=== PATIENT | female | born 1970 | race Caucasian/White ===

== ENCOUNTER → 2016-04-26 | Outpatient (REF) | payer OTHER ==
[~2016-04-26] MED LIST: /DULO30CA; BUSP10TA PO; CYMB60CA3 PO; HYDROCORTISONE0.5 %; LEVO25TA5 PO; PAXI20TA; [UNRECOGNIZED DRUG - OTHER]
[2016-04-26 12:10] LABS: THYROXINE (T4) 8.5 UG/DL (4.5-12.0)
== END | disposition home or self-care (01) ==
LOC: M SFHCCLAY 08:25
PROVIDERS: ATTEND Family Medicine
DX: E03.9 Hypothyroidism, unspecified (principal)

== ENCOUNTER → 2016-05-14 | Outpatient (REF) | payer OTHER ==
[2016-05-14 17:24] LABS: FOLLICLE STIMULATING HORMONE 6.3 mIU/mL; LUTEINIZING HORMONE 20.6 mIU/mL; PROLACTIN 29.5 NG/ML
== END ==
LOC: M SFHCCLAY 11:15
PROVIDERS: ATTEND Family Medicine
DX: N94.3 Premenstrual tension syndrome (principal)

== ENCOUNTER → 2016-06-17 | Outpatient (REF) | payer OTHER | LOC: M LAB REF 18:14 | PROVIDERS: ATTEND Physician Assistant Medical | DX: R30.0 Dysuria (principal) ==

== ENCOUNTER → 2016-10-19 | Outpatient (REF) | payer BC, OTHER ==
[2016-10-19 19:30] LABS: THYROXINE (T4) 8.9 UG/DL (4.5-12.0)
== END ==
LOC: M LABDRWAD 14:42
PROVIDERS: ATTEND Family Medicine
DX: E03.9 Hypothyroidism, unspecified (principal)

== ENCOUNTER → 2017-01-23 | Outpatient (REF) | payer BC, OTHER | LOC: EEVIPCON 20:52 → M LAB REF 20:52 | PROVIDERS: ATTEND Physician Assistant | DX: R30.0 Dysuria (principal) ==

== ENCOUNTER → 2017-03-26 | Outpatient (REF) | payer BC ==
[2017-03-26 18:16] LABS: CHLAMYDIA DNA AMPLIFICATION NEGATIVE (NEGATIVE); GC DNA AMPLIFICATION NEGATIVE (NEGATIVE)
== END ==
LOC: M LAB REF 16:16
DX: R30.0 Dysuria (principal)
CPT/HCPCS: 87086

== ENCOUNTER → 2017-04-05 | Outpatient (REF) | payer BC ==
[2017-04-05 20:11] LABS: THYROXINE (T4) 8.1 UG/DL (4.5-12.0)
== END ==
LOC: M LAB REF 09:06
DX: E03.9 Hypothyroidism, unspecified (principal)
CPT/HCPCS: 84443

== ENCOUNTER → 2017-04-11 | Outpatient (REF) | payer BC | LOC: M SFHCCLAY 16:17 | DX: R39.15 Urgency of urination (principal) | CPT/HCPCS: 87086 ==

== ENCOUNTER → 2017-04-25 | Outpatient (REF) | payer BC ==
[2017-04-26 11:34] LABS: BASO # 0.1 10^3/uL (0.0-0.2); BASO % 1.6 % (0.0-1.0); EOS # 0.1 10^3/uL (0.0-0.50); EOS % 1.2 % (0.0-3.0); HEMATOCRIT 38.4 % (36.0-47.0); HEMOGLOBIN 12.9 g/dl (12.0-16.0); IMMATURE GRANULOCYTE % 0.2 % (0-0); LYMPH # 1.7 10^3/uL (1.5-4.5); LYMPH % 30.4 % (24.0-44.0); MEAN CORPUSCULAR HEMOGLOBIN 29.1 pg (27.0-33.0); MEAN CORPUSCULAR HGB CONC 33.6 g/dl (32.0-36.5); MEAN CORPUSCULAR VOLUME 86.7 fl (80.0-96.0); MONO # 0.7 10^3/uL (0.0-0.8); MONO % 11.4 % (0.0-5.0); NEUTROPHILS # 3.2 10^3/uL (1.8-7.7); NEUTROPHILS % 55.2 % (36.0-66.0); PLATELET COUNT, AUTOMATED 322 10^3/uL (150-450); RED BLOOD COUNT 4.43 10^6/uL (4.00-5.40); WHITE BLOOD COUNT 5.7 10^3/uL (4.0-10.0)
[2017-04-26 11:49] LABS: IRON (FE) 188 UG/DL (50-170)
[2017-04-26 12:46] LABS: FOLATE 23.1 NG/ML (>5.4)
== END ==
LOC: M SFHCCLAY 14:13
DX: Z13.21 Encounter for screening for nutritional disorder (principal); R53.82 Chronic fatigue, unspecified; L65.9 Nonscarring hair loss, unspecified
CPT/HCPCS: 82746

== ENCOUNTER → 2017-05-07 | Outpatient (REF) | payer BC ==
[2017-05-07 13:28] LABS: APPEARANCE, URINE HAZY (CLEAR); BACTERIA, URINE AUTO 1+ (NEGATIVE); BILIRUBIN, URINE AUTO NEGATIVE (NEGATIVE); BLOOD, URINE BLOOD NEGATIVE (NEGATIVE); COLOR, URINE YELLOW (YELLOW); GLUCOSE, URINE (UA) AUTO NEGATIVE (NEGATIVE); KETONE, URINE AUTO NEGATIVE (NEGATIVE); LEUKOCYTE ESTERASE, URINE AUTO NEGATIVE (NEGATIVE); MUCUS, URINE SMALL (NEGATIVE); NITRITE, URINE AUTO NEGATIVE (NEGATIVE); PROTEIN, URINE AUTO NEGATIVE (NEGATIVE); RBC, URINE AUTO 2 /HPF (0-3); SPECIFIC GRAVITY URINE AUTO 1.024 (1.002-1.035); SQUAMOUS EPITHELIAL CELL UR AU 5 /HPF (0-6); UROBILINOGEN, URINE AUTO 0.2 mg/dL (0.0-2.0); WBC, URINE AUTO 0 /HPF (0-3)
== END ==
LOC: M SMT 13:11
DX: R39.15 Urgency of urination (principal); R30.0 Dysuria; R31.9 Hematuria, unspecified
CPT/HCPCS: 81001

== ENCOUNTER → 2017-07-11 | Outpatient (REF) | payer BC ==
[2017-07-11 18:18] LABS: APPEARANCE, URINE CLEAR (CLEAR); BACTERIA, URINE AUTO NEGATIVE (NEGATIVE); BILIRUBIN, URINE AUTO NEGATIVE (NEGATIVE); BLOOD, URINE BLOOD NEGATIVE (NEGATIVE); COLOR, URINE YELLOW (YELLOW); GLUCOSE, URINE (UA) AUTO NEGATIVE (NEGATIVE); KETONE, URINE AUTO NEGATIVE (NEGATIVE); LEUKOCYTE ESTERASE, URINE AUTO NEGATIVE (NEGATIVE); MUCUS, URINE SMALL (NEGATIVE); NITRITE, URINE AUTO NEGATIVE (NEGATIVE); PROTEIN, URINE AUTO NEGATIVE (NEGATIVE); RBC, URINE AUTO 1 /HPF (0-3); SPECIFIC GRAVITY URINE AUTO 1.014 (1.002-1.035); SQUAMOUS EPITHELIAL CELL UR AU 0 /HPF (0-6); UROBILINOGEN, URINE AUTO 0.2 mg/dL (0.0-2.0); WBC, URINE AUTO 1 /HPF (0-3)
== END ==
LOC: M SMT 17:22
DX: R31.9 Hematuria, unspecified (principal)
CPT/HCPCS: 81001

== ENCOUNTER → 2017-10-26 | Outpatient (REF) | payer BC | LOC: M LAB REF 10:12 | DX: R30.0 Dysuria (principal) | CPT/HCPCS: 87086 ==

== ENCOUNTER → 2017-11-15 | Outpatient (REF) | payer BC ==
[2017-11-15 17:17] LABS: TOTAL T3 96.1 NG/DL (60.0-181.0)
[2017-11-15 17:20] LABS: THYROXINE (T4) 8.2 UG/DL (4.5-12.0)
== END ==
LOC: M SFHCADAM 15:28
DX: E03.9 Hypothyroidism, unspecified (principal)
CPT/HCPCS: 84443

== ENCOUNTER → 2018-02-05 | Outpatient (REF) | payer BC | LOC: M LAB REF 19:30 | DX: N39.0 Urinary tract infection, site not specified (principal) | CPT/HCPCS: 87186 ==

== ENCOUNTER → 2018-05-09 | Outpatient (REF) | payer BC | LOC: M LABDRWAD 19:12 | PROVIDERS: ATTEND Family Medicine | DX: E03.9 Hypothyroidism, unspecified (principal) ==

== ENCOUNTER → 2018-07-25 | Outpatient (REF) | payer BC ==
[~2018-07-25] MED LIST changes: -/DULO30CA; +CYMB1CAP5
== END ==
LOC: M SFHCCLAY 11:41
PROVIDERS: ATTEND Family Medicine
DX: E03.9 Hypothyroidism, unspecified (principal)

== ENCOUNTER → 2018-12-09 | Outpatient (REF) | payer BC ==
[2018-12-09 17:25] LABS: ALBUMIN 3.7 GM/DL (3.2-5.2); ALT/SGPT 18 U/L (12-78); BILIRUBIN,TOTAL 0.8 MG/DL (0.2-1.0); BLOOD UREA NITROGEN 11 MG/DL (7-18); CARBON DIOXIDE LEVEL 26 MEQ/L (21-32); CHLORIDE LEVEL 106 MEQ/L (98-107); CHOLESTEROL LEVEL 221 MG/DL (<200); CREATININE FOR GFR 0.86 MG/DL (0.55-1.30); GLOMERULAR FILTRATION RATE > 60.0 (>58); GLUCOSE, FASTING 86 MG/DL (70-100); HDL CHOLESTEROL 65 MG/DL (>40); LDL CHOLESTEROL 133 MG/DL (<100); NON-HDL-C 156 MG/DL; POTASSIUM SERUM 4.1 MEQ/L (3.5-5.1); SODIUM LEVEL 139 MEQ/L (136-145); THYROXINE (T4) 7.4 UG/DL (4.5-12.0); TOTAL PROTEIN 7.2 GM/DL (6.4-8.2); TOTAL T3 81.8 NG/DL (60.0-181.0); TRIGLYCERIDES LEVEL 113 MG/DL (<150)
== END ==
LOC: M SFHCCLAY 10:33
PROVIDERS: ATTEND Family Medicine
DX: Z13.220 Encounter for screening for lipoid disorders (principal); E03.9 Hypothyroidism, unspecified

== ENCOUNTER → 2019-06-26 | Outpatient (REF) | payer BC | LOC: M SFHCADAM 15:39 | PROVIDERS: ATTEND Family Medicine | DX: E03.9 Hypothyroidism, unspecified (principal) ==

== ENCOUNTER → 2019-11-03 | Outpatient (REF) | payer BC | LOC: M SFHCCLAY 15:19 | PROVIDERS: ATTEND Family Medicine | DX: E03.9 Hypothyroidism, unspecified (principal) ==

== ENCOUNTER → 2019-12-14 | Outpatient (REF) | payer BC ==
[2019-12-14 17:32] LABS: ALBUMIN 3.7 GM/DL (3.2-5.2); ALT/SGPT 18 U/L (12-78); BILIRUBIN,TOTAL 0.7 MG/DL (0.2-1.0); BLOOD UREA NITROGEN 13 MG/DL (7-18); CARBON DIOXIDE LEVEL 29 MEQ/L (21-32); CHLORIDE LEVEL 107 MEQ/L (98-107); CHOLESTEROL LEVEL 236 MG/DL (<200); CHOLESTEROL RISK RATIO 3.806 (<5); GLOMERULAR FILTRATION RATE > 60.0 (>58); GLUCOSE, FASTING 87 MG/DL (70-100); HDL CHOLESTEROL 62 MG/DL (>40); LDL CHOLESTEROL 145 MG/DL (<100); NON-HDL-C 174 MG/DL; POTASSIUM SERUM 4.5 MEQ/L (3.5-5.1); SODIUM LEVEL 140 MEQ/L (136-145); TOTAL PROTEIN 7.1 GM/DL (6.4-8.2); TRIGLYCERIDES LEVEL 146 MG/DL (<150)
== END ==
LOC: M SFHCCLAY 16:18
PROVIDERS: ATTEND Family Medicine
DX: E03.9 Hypothyroidism, unspecified (principal); E78.2 Mixed hyperlipidemia

== ENCOUNTER → 2020-01-22 | Outpatient (REF) | payer BC ==
[2020-01-22 17:41] LABS: FREE T4 1.01 NG/DL (0.76-1.46); THYROID STIMULATING HORMONE 3.24 uIU/ML (0.358-3.740)
== END ==
LOC: M SFHCCLAY 09:43
PROVIDERS: ATTEND Family Medicine
DX: E03.9 Hypothyroidism, unspecified (principal)

== ENCOUNTER → 2020-02-16 | Outpatient (REF) | payer BC ==
[2020-02-16 16:35] LABS: BASO # 0.1 10^3/uL (0.0-0.2); BASO % 1.1 % (0.0-1.0); EOS # 0.1 10^3/uL (0.0-0.5); EOS % 1.2 % (0.0-3.0); HEMATOCRIT 41.6 % (36.0-47.0); HEMOGLOBIN 13.6 g/dl (12.0-15.5); LYMPH # 2.4 10^3/uL (1.5-5.0); LYMPH % 29.2 % (24.0-44.0); MEAN CORPUSCULAR HEMOGLOBIN 29.4 pg (27.0-33.0); MEAN CORPUSCULAR HGB CONC 32.7 g/dl (32.0-36.5); MEAN CORPUSCULAR VOLUME 89.8 fl (80.0-96.0); MONO # 0.9 10^3/uL (0.0-0.8); MONO % 10.4 % (0.0-5.0); NEUTROPHILS # 4.8 10^3/uL (1.5-8.5); NEUTROPHILS % 57.9 % (36.0-66.0); PLATELET COUNT, AUTOMATED 352 10^3/uL (150-450); RED BLOOD COUNT 4.63 10^6/uL (4.00-5.40); WHITE BLOOD COUNT 8.3 10^3/uL (4.0-10.0)
== END ==
LOC: M SFHCCLAY 13:59
PROVIDERS: ATTEND Family Medicine
DX: E03.9 Hypothyroidism, unspecified (principal); R53.82 Chronic fatigue, unspecified

== ENCOUNTER → 2020-03-10 | Outpatient (REF) | payer BC ==
[2020-03-11 12:19] LABS: FREE T4 1.39 NG/DL (0.76-1.46); THYROID STIMULATING HORMONE 0.11 uIU/ML (0.358-3.740)
== END ==
LOC: M SFHCCLAY 15:14
PROVIDERS: ATTEND Family Medicine
DX: E03.9 Hypothyroidism, unspecified (principal)

== ENCOUNTER → 2020-06-01 | Outpatient (CLI) | payer BC ==
[2020-06-01 17:55] LABS: FREE T4 0.99 NG/DL (0.76-1.46); THYROID STIMULATING HORMONE 2.09 uIU/ML (0.358-3.740)
== END ==
LOC: M LAB 16:55
PROVIDERS: ATTEND Family Medicine
DX: E03.9 Hypothyroidism, unspecified (principal)

== ENCOUNTER → 2020-07-14 | Outpatient (CLI) | payer BC ==
[2020-07-14 18:09] LABS: FREE T4 1.02 NG/DL (0.76-1.46); THYROID STIMULATING HORMONE 0.372 uIU/ML (0.358-3.740)
== END ==
LOC: M LAB 17:24
PROVIDERS: ATTEND Family Medicine
DX: E03.9 Hypothyroidism, unspecified (principal)

== ENCOUNTER 2020-08-31 11:53 | Emergency (ER) | payer BC ==
[~2020-08-31] VITALS: Ht 162.6 cm; Wt 68.2 kg
[2020-08-31 12:40] LABS: HEMATOCRIT 41.5 % (36.0-47.0); HEMOGLOBIN 13.7 g/dl (12.0-15.5); MEAN CORPUSCULAR HEMOGLOBIN 29.2 pg (27.0-33.0); MEAN CORPUSCULAR VOLUME 88.5 fl (80.0-96.0); PLATELET COUNT, AUTOMATED 316 10^3/uL (150-450); RED BLOOD COUNT 4.69 10^6/uL (4.00-5.40)
[2020-08-31 13:06] LABS: AMPHETAMINES LEVEL URINE NEGATIVE (NEGATIVE); BARBITURATES URINE NEGATIVE (NEGATIVE); BENZODIAZEPINES URINE NEGATIVE (NEGATIVE); CANNABINOIDS URINE NEGATIVE (NEGATIVE); COCAINE METABOLITE URINE NEGATIVE (NEGATIVE); METHADONE URINE NEGATIVE (NEGATIVE); OPIATES URINE NEGATIVE (NEGATIVE); PHENCYCLIDINE URINE NEGATIVE (NEGATIVE)
[2020-08-31 13:15] LABS: ACETAMINOPHEN LEVEL < 2.0 UG/ML (10.0-30.0); ALT/SGPT 19 U/L (12-78); BILIRUBIN,DIRECT 0.2 MG/DL (0.0-0.2); BILIRUBIN,TOTAL 0.7 MG/DL (0.2-1.0); BLOOD UREA NITROGEN 9 MG/DL (7-18); CALCIUM LEVEL 9.5 MG/DL (8.5-10.1); CARBON DIOXIDE LEVEL 29 MEQ/L (21-32); CHLORIDE LEVEL 105 MEQ/L (98-107); CREATININE FOR GFR 0.84 MG/DL (0.55-1.30); ETHYL ALCOHOL (ETHANOL) 0.005 % (0.000-0.010); GLOMERULAR FILTRATION RATE > 60.0 (>51); GLUCOSE, FASTING 87 MG/DL (70-100); POTASSIUM SERUM 4.5 MEQ/L (3.5-5.1); SALICYLATE LEVEL < 1.7 MG/DL (5.0-30.0); SODIUM LEVEL 139 MEQ/L (136-145); TOTAL PROTEIN 7.8 GM/DL (6.4-8.2)
[2020-08-31] MEDS ORDERED: LORazepam 1 MG TAB PO ONE (14:10)
[2020-08-31 14:26] LABS: HCG, SERUM QUALITATIVE NEGATIVE (NEGATIVE)
[2020-08-31 16:54] LABS: RSV AMPLIFICATION NEGATIVE (NEGATIVE)
[2020-08-31] MEDS ORDERED: MAGN250T22 PO (20:53)
[2020-08-31] MEDS ORDERED: IBUP80TA PO (20:53)
[2020-08-31] MEDS ORDERED: ANTIBIOTIC PO (20:53)
[2020-08-31] MEDS ORDERED: VITMTA PO (20:53)
[2020-08-31] MEDS ORDERED: EUTH75TA PO (20:53)
[2020-09-01 03:05] VITALS: BP 134/79
--- NOTE | 2020-09-01 08:41 | ECGEPIP ---
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
== END 2020-09-01 03:15 ==
LOC: M ED 11:53
DX: F32.9 Major depressive disorder, single episode, unspecified (principal); R45.850 Homicidal ideations; R45.851 Suicidal ideations; Z79.899 Other long term (current) drug therapy; Z88.8 Allergy status to other drugs, medicaments and biological substances; Z88.5 Allergy status to narcotic agent; Z88.1 Allergy status to other antibiotic agents; Z88.2 Allergy status to sulfonamides

== ENCOUNTER → 2020-09-19 | Outpatient (REF) | payer BC ==
[~2020-09-19] MED LIST changes: +ANTIBIOTIC PO; +EUTH75TA PO; +IBUP80TA PO; +MAGN250T22 PO; +VITMTA PO
[2020-09-20 12:10] LABS: ALBUMIN 4.2 GM/DL (3.2-5.2); ALT/SGPT 15 U/L (12-78); BILIRUBIN,TOTAL 0.8 MG/DL (0.2-1.0); BLOOD UREA NITROGEN 11 MG/DL (7-18); CALCIUM LEVEL 9.5 MG/DL (8.5-10.1); CARBON DIOXIDE LEVEL 24 MEQ/L (21-32); CHLORIDE LEVEL 107 MEQ/L (98-107); CHOLESTEROL LEVEL 249 MG/DL (<200); CREATININE FOR GFR 0.86 MG/DL (0.55-1.30); FREE T4 1.23 NG/DL (0.76-1.46); GLOMERULAR FILTRATION RATE > 60.0 (>51); GLUCOSE, FASTING 81 MG/DL (70-100); HDL CHOLESTEROL 60 MG/DL (>40); LDL CHOLESTEROL 165 MG/DL (<100); NON-HDL-C 189 MG/DL; POTASSIUM SERUM 4.3 MEQ/L (3.5-5.1); SODIUM LEVEL 139 MEQ/L (136-145); THYROID STIMULATING HORMONE 0.624 uIU/ML (0.358-3.740); TOTAL PROTEIN 7.8 GM/DL (6.4-8.2); TRIGLYCERIDES LEVEL 118 MG/DL (<150)
== END ==
LOC: M SFHCCLAY 15:42
PROVIDERS: ATTEND Family Medicine
DX: E78.2 Mixed hyperlipidemia (principal); E03.9 Hypothyroidism, unspecified

== ENCOUNTER → 2020-11-29 | Outpatient (CLI) | payer OTHER ==
[2020-11-29 16:50] LABS: FREE T4 1.13 NG/DL (0.76-1.46); THYROID STIMULATING HORMONE 1.44 uIU/ML (0.358-3.740)
== END ==
LOC: M WUC 13:20
PROVIDERS: ATTEND Family Medicine
DX: E03.9 Hypothyroidism, unspecified (principal)

== ENCOUNTER 2021-04-19 18:00 | Emergency (ER) | payer OTHER ==
[~2021-04-19] VITALS: Ht 162.6 cm; Wt 63.6 kg
[~2021-04-19 18:00] MED LIST changes: -CYMB60CA3 PO; +CYMB60CA4 PO
[2021-04-19 18:01] VITALS: BP 156/65
== END 2021-04-20 00:42 | disposition left against medical advice (07) ==
LOC: M ED 18:00
DX: Z53.21 Procedure and treatment not carried out due to patient leaving prior to being seen by health care provider (principal)

== ENCOUNTER → 2021-05-08 | Outpatient (REF) | payer OTHER ==
[2021-05-09 12:39] LABS: ALBUMIN 3.9 GM/DL (3.2-5.2); ALT/SGPT 22 U/L (12-78); BILIRUBIN,TOTAL 0.4 MG/DL (0.2-1.0); BLOOD UREA NITROGEN 16 MG/DL (7-18); CALCIUM LEVEL 9.5 MG/DL (8.5-10.1); CARBON DIOXIDE LEVEL 24 MEQ/L (21-32); CHLORIDE LEVEL 106 MEQ/L (98-107); CHOLESTEROL LEVEL 240 MG/DL (<200); CHOLESTEROL RISK RATIO 3.582 (<5); CREATININE FOR GFR 0.84 MG/DL (0.55-1.30); FREE T4 1.16 NG/DL (0.76-1.46); GLOMERULAR FILTRATION RATE > 60.0 (>51); GLUCOSE, FASTING 83 MG/DL (70-100); HDL CHOLESTEROL 67 MG/DL (>40); LDL CHOLESTEROL 140 MG/DL (<100); NON-HDL-C 173 MG/DL; POTASSIUM SERUM 4.9 MEQ/L (3.5-5.1); SODIUM LEVEL 137 MEQ/L (136-145); THYROID STIMULATING HORMONE 0.241 uIU/ML (0.358-3.740); TOTAL PROTEIN 7.6 GM/DL (6.4-8.2); TRIGLYCERIDES LEVEL 165 MG/DL (<150)
== END ==
LOC: M SFHCCLAY 15:39
PROVIDERS: ATTEND Family Medicine
DX: E78.2 Mixed hyperlipidemia (principal); E03.9 Hypothyroidism, unspecified

== ENCOUNTER → 2021-09-12 | Outpatient (REF) | payer OTHER ==
[2021-09-12 16:36] LABS: FREE T4 0.93 NG/DL (0.76-1.46); THYROID STIMULATING HORMONE 2.37 uIU/ML (0.358-3.740)
[2021-09-12 16:38] LABS: TOTAL T3 78.2 NG/DL (60.0-181.0)
== END ==
LOC: M SFHCCLAY 10:58
PROVIDERS: ATTEND Family Medicine
DX: E03.9 Hypothyroidism, unspecified (principal)

== ENCOUNTER → 2022-06-08 | Outpatient (REF) | payer OTHER ==
[2022-06-08 18:32] LABS: ALBUMIN 3.9 G/DL (3.2-5.2); ALKALINE PHOSPHATASE 49 U/L (46-116); ALT/SGPT 16 U/L (7.0-40); AST/SGOT 16 U/L (<34); BILIRUBIN,TOTAL 1.1 MG/DL (0.3-1.2); BLOOD UREA NITROGEN 15 MG/DL (9-23); CALCIUM LEVEL 9.5 MG/DL (8.5-10.1); CARBON DIOXIDE LEVEL 26 MMOL/L (20-31); CHLORIDE LEVEL 105 MMOL/L (98-107); CHOLESTEROL LEVEL 232 MG/DL (<200); CHOLESTEROL RISK RATIO 3.77 (<5); CREATININE FOR GFR 0.82 MG/DL (0.55-1.30); FREE T4 0.91 NG/DL (0.89-1.76); GLOMERULAR FILTRATION RATE > 60.0 (>51); GLUCOSE, FASTING 78 MG/DL (60-100); HDL CHOLESTEROL 61.5 MG/DL (>40); LDL CHOLESTEROL 149.5 MG/DL (<100); NON-HDL-C 170.5 MG/DL; POTASSIUM SERUM 4.5 MMOL/L (3.5-5.1); SODIUM LEVEL 139 MMOL/L (136-145); THYROID STIMULATING HORMONE 1.523 uIU/ML (0.55-4.78); TOTAL PROTEIN 7.1 G/DL (5.7-8.2); TOTAL T3 97.4 NG/DL (60.0-181.0); TRIGLYCERIDES LEVEL 105 MG/DL (<150)
== END ==
LOC: M SFHCCLAY 11:01
PROVIDERS: ATTEND Family Medicine
DX: E03.9 Hypothyroidism, unspecified (principal); E78.2 Mixed hyperlipidemia

== ENCOUNTER → 2022-11-12 | Outpatient (CLI) | payer OTHER, MEDICAID ==
[2022-11-12 17:09] LABS: FREE T4 1.33 NG/DL (0.89-1.76); THYROID STIMULATING HORMONE 1.618 uIU/ML (0.55-4.78); TOTAL T3 103.2 NG/DL (60.0-181.0)
== END ==
LOC: M WUC 12:25
PROVIDERS: ATTEND Family Medicine
DX: E03.9 Hypothyroidism, unspecified (principal)

== ENCOUNTER → 2023-03-11 | Outpatient (REF) | payer OTHER ==
[2023-03-11 19:27] LABS: FREE T4 1.09 NG/DL (0.89-1.76); THYROID STIMULATING HORMONE 1.44 uIU/ML (0.55-4.78)
[2023-03-11 19:36] LABS: TOTAL T3 97.3 NG/DL (60.0-181.0)
== END ==
LOC: M SFHCCLAY 10:03
PROVIDERS: ATTEND Family Medicine
DX: E03.9 Hypothyroidism, unspecified (principal)

== ENCOUNTER → 2023-08-23 | Outpatient (REF) | payer OTHER ==
[2023-08-23 12:46] LABS: ALBUMIN 3.9 G/DL (3.2-5.2); ALKALINE PHOSPHATASE 58 U/L (46-116); ALT/SGPT 23 U/L (7.0-40); AST/SGOT 16 U/L (<34); BILIRUBIN,TOTAL 0.7 MG/DL (0.3-1.2); BLOOD UREA NITROGEN 17 MG/DL (9-23); CALCIUM LEVEL 9.5 MG/DL (8.5-10.1); CARBON DIOXIDE LEVEL 30 MMOL/L (20-31); CHLORIDE LEVEL 107 MMOL/L (98-107); CHOLESTEROL LEVEL 251 MG/DL (<200); CHOLESTEROL RISK RATIO 3.66 (<5); CREATININE FOR GFR 0.83 MG/DL (0.55-1.30); GLOMERULAR FILTRATION RATE > 60.0 (>51); GLUCOSE, FASTING 67 MG/DL (60-100); HDL CHOLESTEROL 68.4 MG/DL (>40); LDL CHOLESTEROL 163.6 MG/DL (<100); NON-HDL-C 182.6 MG/DL; POTASSIUM SERUM 4.5 MMOL/L (3.5-5.1); SODIUM LEVEL 142 MMOL/L (136-145); TOTAL PROTEIN 7.2 G/DL (5.7-8.2); TRIGLYCERIDES LEVEL 95 MG/DL (<150)
[2023-08-23 12:48] LABS: FREE T4 1.24 NG/DL (0.89-1.76); THYROID STIMULATING HORMONE 0.762 uIU/ML (0.55-4.78)
[2023-08-23 12:50] LABS: TOTAL T3 100.8 NG/DL (60.0-181.0)
== END ==
LOC: M SFHCCLAY 08:56
PROVIDERS: ATTEND Family Medicine
DX: E78.2 Mixed hyperlipidemia (principal); E03.9 Hypothyroidism, unspecified

== ENCOUNTER → 2024-02-25 | Outpatient (REF) | payer OTHER ==
[2024-02-25 17:39] LABS: FREE T4 1.22 NG/DL (0.89-1.76); THYROID STIMULATING HORMONE 1.919 uIU/ML (0.55-4.78)
== END ==
LOC: M SFHCCLAY 11:13
PROVIDERS: ATTEND Family Medicine
DX: E03.9 Hypothyroidism, unspecified (principal)

== ENCOUNTER → 2024-03-07 | Outpatient (CLI) | payer OTHER | LOC: M SLEEP 20:00 | PROVIDERS: ATTEND Nurse Practitioner Adult Health | DX: G47.33 Obstructive sleep apnea (adult) (pediatric) (principal) ==

== ENCOUNTER → 2024-09-24 | Outpatient (REF) | payer MEDICAID, SELFPAY | LOC: M SFHCCLAY 15:49 | PROVIDERS: ATTEND Family Medicine | DX: Z53.9 Procedure and treatment not carried out, unspecified reason (principal) ==

== ENCOUNTER → 2024-09-30 | Outpatient (REF) | payer MEDICAID ==
[2024-09-30 18:45] LABS: ALT/SGPT 22.0 U/L (7.0-40); AST/SGOT 23.0 U/L (<34); CALCIUM LEVEL 10.6 MG/DL (8.5-10.1); CARBON DIOXIDE LEVEL 30.0 MMOL/L (20-31); CHLORIDE LEVEL 103.0 MMOL/L (98-107); CHOLESTEROL LEVEL 283.0 MG/DL (<200); CHOLESTEROL RISK RATIO 4.32 (<5); CREATININE FOR GFR 0.92 MG/DL (0.55-1.30); GLOMERULAR FILTRATION RATE 74.0 (>51); LDL CHOLESTEROL 201.9 MG/DL (<100); NON-HDL-C 217.5 MG/DL; POTASSIUM SERUM 4.6 MMOL/L (3.5-5.1); SODIUM LEVEL 143.0 MMOL/L (136-145); TRIGLYCERIDES LEVEL 78.0 MG/DL (<150)
[2024-09-30 18:48] LABS: FREE T4 1.53 NG/DL (0.89-1.76)
== END ==
LOC: M SFHCCLAY 13:56
PROVIDERS: ATTEND Family Medicine
DX: E78.2 Mixed hyperlipidemia (principal); E03.9 Hypothyroidism, unspecified

== ENCOUNTER → 2025-02-14 | Outpatient (CLI) | payer MEDICAID, OTHER ==
[2025-02-14 11:43] LABS: C REACTIVE PROTEIN QUANTITATIV < 0.50 MG/DL (<1.0)
[2025-02-14 11:45] LABS: RHEUMATOID FACTOR QUANT < 3.5 IU/ML (<14)
[2025-02-14 11:46] LABS: FREE T4 1.16 NG/DL (0.89-1.76)
[2025-02-14 11:48] LABS: TOTAL T3 91.4 NG/DL (60.0-181.0)
== END ==
LOC: M LAB 10:31
PROVIDERS: ATTEND Family Medicine
DX: E03.9 Hypothyroidism, unspecified (principal); M25.50 Pain in unspecified joint